=== PATIENT | male | born 1940 | race Caucasian/White ===

== ENCOUNTER 2020-02-02 12:43 | Emergency (ER) | payer OTHER ==
[~2020-02-02] VITALS: Ht 172.7 cm; Wt 108.9 kg
[2020-02-02] MEDS ORDERED: PROAIR HFA8.5 GM INH (12:55)
[2020-02-02] MEDS ORDERED: ATENOLOL 100MG100 MG PO (12:56)
[2020-02-02] MEDS ORDERED: CHILDREN'S ASPI81 M1 PO (12:56)
[2020-02-02] MEDS ORDERED: FLEXERIL PO (12:56)
[2020-02-02] MEDS ORDERED: SIMVASTATIN80 MG PO (12:57)
[2020-02-02] MEDS ORDERED: LISINOPRIL-HCT1 EACH PO (12:57)
[2020-02-02 13:36] LABS: ABSOLUTE BASOPHILS 0.1 thou/uL (0.0-0.2); ABSOLUTE LYMPHOCYTES 0.8 thou/uL (0.8-5.3); ABSOLUTE NEUTROPHILS 8.9 thou/uL (1.6-8.1); BASOPHILS 0.6 %; EOSINOPHILS 0.2 %; HEMATOCRIT 43.5 % (42.0-52.0); HEMOGLOBIN 15.2 gm/dL (14.0-18.0); MCHC 34.8 g/dL (28.0-37.0); MCV 97.5 fL (80.0-100.0); MONOCYTES 9.7 %; MPV 9.9 fl. (7.2-11.1); NUCLEATED RBCS 0 /100WBC; PLATELET COUNT* 179 thou/uL (150-400); POLYS 82.5 %; RBC 4.47 mil/uL (4.50-6.00); RDW-CV 13.4 % (10.5-14.5); WBC 10.8 thou/uL (4.0-11.0)
[2020-02-02 13:42] LABS: CALCIUM 8.9 mg/dL (8.5-10.1); CREATININE 2.3 mg/dL (0.6-1.3); POTASSIUM 4.3 mmol/L (3.5-5.1)
[2020-02-02 13:44] LABS: URIC ACID* 8.2 mg/dL (2.6-7.2)
[2020-02-02] MEDS ORDERED: INDOMETHACIN 5050 M1 PO (13:59)
[2020-02-02] MEDS ORDERED: PREDNISONE 10 M10 MG PO (13:59)
[2020-02-02] MEDS ORDERED: NORCO 5-325 TA1 EAC2 PO (13:59)
[2020-02-02 14:48] VITALS: BP 102/64
== END 2020-02-02 14:49 | disposition home or self-care (01) ==
LOC: M.ERS 12:43
PROVIDERS: Nurse Practitioner Family
DX: M10.071 Idiopathic gout, right ankle and foot (principal); N28.9 Disorder of kidney and ureter, unspecified; I10 Essential (primary) hypertension; Z88.8 Allergy status to other drugs, medicaments and biological substances; Z85.46 Personal history of malignant neoplasm of prostate